=== PATIENT | female | born 1975 | race Caucasian/White ===

== ENCOUNTER 2020-02-16 21:46 | Emergency (ER) | payer OTHER ==
[2020-02-17] MEDS ORDERED: NA CHLORIDE 0.9% 1,000 ML ONE (02:35)
[2020-02-17] MEDS ORDERED: KETOROLAC 30 MG/ML INJ ONE (02:35)
[2020-02-17 02:53] LABS: Absolute Lymphocytes (CBC) 2.6 K/uL (0.7-4.9); Basophils % 0.9 % (0-1.3); Hematocrit 41.7 % (36.0-45.0); Lymphocytes % 15.2 % (15.3-44.8); MPV 8.9 fL (7.6-11.3); RBC Red Blood Cell Count 4.84 M/uL (3.86-4.86)
[2020-02-17 03:06] LABS: Potassium 4.2 mmol/L (3.5-5.1)
[2020-02-17 03:27] LABS: Urine Blood 2+ (NEG); Urine Glucose NEGATIVE (NEG); Urine Protein 2+ (NEG); Urine Specific Gravity 1.015 (1.005-1.030); Urine pH 6.5 (5.0-7.0)
[2020-02-17 03:48] LABS: Urine Culture Reflex Order REFLEXED; Urine Yeast MANY (NONE SEEN); Urine Yeast with Hyphae PRESENT
[2020-02-17 03:49] LABS: Urine Bacteria 20-50 /HPF (<20)
[2020-02-17 03:50] LABS: Urine Specific Gravity 1.015 (1.005-1.030)
[2020-02-17] MEDS ORDERED: CIPROFLOXACIN 400mg IV 400 MG/200 ML BAG IV ONE (04:58)
--- NOTE | 2020-02-17 05:11 | ER ---
Nurse's Notes [facility] Name: Ana Trotter Age: 44 yrs Sex: Female : 1975 Arrival Date: 02/16/2020 Time: 21:48 Bed 14 Private MD: Diagnosis: Right distal ureteric calculus with moderate to severe hydronephrosis and hydroureter. Large right UPJ calculus. Urinary tract infection Presentation: 02/15 21:56 Chief complaint: Patient states: Right flank pain for 1 day. States she just had a ll1 kidney stone removal with stent placement 2 weeks ago. Coronavirus screen: Proceed with normal triage. Patient denies a cough. Patient denies shortness of breath or difficulty breathing. Patient denies measured and/or subjective temperature greater than 100.4F prior to today's visit. Patient denies travel on a cruise ship or to a country the [facility] currently lists as an affected area. Patient denies contact with known and/or suspected case of COVID-19. Ebola Screen: Patient denies travel to an Ebola-affected area in the 21 days before illness onset. Initial Sepsis Screen: Does the patient meet any 2 criteria? HR > 90 bpm. No. Patient's initial sepsis screen is negative. Risk Assessment: Do you want to hurt yourself or someone else? Patient reports no desire to harm self or others. Onset of symptoms was February 16, 2020. 21:56 Method Of Arrival: Ambulatory ll1 21:56 Acuity: CINTIA 3 ll1 02/16 02:23 Initial Sepsis Screen: Does the patient have a suspected source of infection? No. mg2 Patient's initial sepsis screen is negative. 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 - Social history:: Smoking status: Patient reports the use of cigarette tobacco products, smokes one pack cigarettes per day. Patient/guardian denies using alcohol, street drugs. Screenin/02 02:23 Abuse screen: Denies threats or abuse. Denies injuries from another. Nutritional mg2 screening: No deficits noted. Tuberculosis screening: No symptoms or risk factors identified. Fall Risk None identified. Assessment: 02:22 General: Appears in no apparent distress. uncomfortable, Behavior is calm, cooperative. mg2 Pain: Complains of pain in right side. Neuro: Level of Consciousness is awake, alert, obeys commands, Oriented to person, place, time, situation. Cardiovascular: Capillary refill < 3 seconds Patient's skin is warm and dry. Respiratory: Airway is patent Respiratory effort is even, unlabored, Respiratory pattern is regular, symmetrical. GI: No signs and/or symptoms were reported involving the gastrointestinal system. : Reports pain in right flank(s). EENT: No signs and/or symptoms were reported regarding the EENT system. Derm: Skin is intact, is healthy with good turgor, Skin is pink, warm \T\ dry. normal. Musculoskeletal: Circulation, motion, and sensation intact. Capillary refill < 3 seconds. 03:30 Reassessment: Patient appears in no apparent distress at this time. Patient and/or mg2 family updated on plan of care and expected duration. Pain level reassessed. Patient is alert, oriented x 3, equal unlabored respirations, skin warm/dry/pink. 04:35 Reassessment: Patient appears in no apparent distress at this time. Patient and/or mg2 family updated on plan of care and expected duration. Pain level reassessed. Patient is alert, oriented x 3, equal unlabored respirations, skin warm/dry/pink. Vital Signs: 02/15 21:56 BP 143 / 105; Pulse 100; Resp 18; Temp 98.0; Pulse Ox 98% ; Pain 6/10; ll1 02/16 04:41 BP 133 / 76; Pulse 90; Resp 18; Temp 98; Pulse Ox 100% on R/A; mg2 ED Course: 02/15 21:48 Patient arrived in ED. cl3 21:57 Triage completed. ll1 21:59 Arm band placed on Patient notified of wait time. ll1 02/16 00:49 Patient's name was called from ER lobby. No response. lp1 02:14 Juan De La Torre MD is Attending Physician. pkl 02:22 Roc Perales, SWATI is Primary Nurse. mg2 02:23 Patient has correct armband on for positive identification. Pulse ox on. NIBP on. Door mg2 closed. Warm blanket given. 02:39 No provider procedures requiring assistance completed. Inserted saline lock: 20 gauge mg2 in left upper arm, using aseptic technique. Blood collected. 02:53 Urine Microscopic Only Sent. ds4 02:54 Chem 7 Sent. ds4 02:54 CBC with Diff Sent. ds4 02:54 Urine Microscopic Only Sent. ds4 02:55 Urine Dipstick--Ancillary (enter results) Sent. ds4 04:10 CT Stone Protocol In Process Unspecified. EDMS 05:57 IV discontinued, intact, bleeding controlled, No redness/swelling at site. Pressure rv dressing applied. Administered Medications: 02:39 Drug: NS 0.9% 1000 ml Route: IV; Rate: 1000 ml; Site: left upper arm; mg2 03:46 Follow up: Response: No adverse reaction; IV Status: Completed infusion; IV Intake: mg2 1000ml 02:39 Drug: TORadol 30 mg Route: IVP; Site: left upper arm; mg2 03:46 Follow up: Response: No adverse reaction mg2 04:55 Drug: Ciprofloxacin 400 mg Volume: 200 ml; Route: IVPB; Infused Over: 60 mins; Site: mg2 left upper arm; 05:57 Follow up: IV Status: Completed infusion; IV Intake: 200ml rv Intake: 03:46 IV: 1000ml; Total: 1000ml. mg2 05:57 IV: 200ml; Total: 1200ml. rv Outcome: 05:10 Discharge ordered by . pkdarlin 05:19 Discharged to home ambulatory. rv 05:19 Condition: good 05:19 Discharge instructions given to patient, Instructed on discharge instructions, follow up and referral plans. medication usage, Demonstrated understanding of instructions, follow-up care, medications, Prescriptions given X 2. 05:58 Patient left the ED. rv Signatures: Dispatcher [employer] EDMS Juan De La Torre MD MD pkBrandi Sanchez, RN RN lp1 Kevin Cordero ds4 Roc Perales RN RN mg2 Angel Villegas RN RN rv Sara Escoto cl3 Fabiola Escoto RN RN ll1
--- NOTE | 2020-02-17 05:12 | EDPHYS ---
Physician Documentation [facility] Name: Ana Trotter Age: 44 yrs Sex: Female : 1975 Arrival Date: 02/16/2020 Time: 21:48 Bed 14 Private MD: ED Physician Juan De La Torre HPI: 02/16 04:54 This 44 yrs old Female presents to ER via Ambulatory with complaints of Right pkl Side Pain. 04:54 The patient complains of pain in the right flank. The pain radiates to the right lower pkl quadrant. Onset: The symptoms/episode began/occurred today. Patient had stent placement and removal of a right ureteric stone by her urologist ( Dr. Chavira ) in [facility] ) 2 weeks ago. 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 - Social history:: Smoking status: Patient reports the use of cigarette tobacco products, smokes one pack cigarettes per day. Patient/guardian denies using alcohol, street drugs. ROS: 02/16 04:54 Eyes: Negative for injury, pain, redness, and discharge, ENT: Negative for injury, pkl pain, and discharge, Neck: Negative for injury, pain, and swelling, Cardiovascular: Negative for chest pain, palpitations, and edema, Respiratory: Negative for shortness of breath, cough, wheezing, and pleuritic chest pain, Abdomen/GI: Negative for abdominal pain, nausea, vomiting, diarrhea, and constipation, : Negative for injury, bleeding, discharge, and swelling, MS/Extremity: Negative for injury and deformity, Skin: Negative for injury, rash, and discoloration, Neuro: Negative for headache, weakness, numbness, tingling, and seizure. Back: Positive for flank pain, on the right. Exam: 04:54 Head/Face: Normocephalic, atraumatic. Eyes: Pupils equal round and reactive to light, pkl extra-ocular motions intact. Lids and lashes normal. Conjunctiva and sclera are non-icteric and not injected. Cornea within normal limits. Periorbital areas with no swelling, redness, or edema. ENT: Nares patent. No nasal discharge, no septal abnormalities noted. Tympanic membranes are normal and external auditory canals are clear. Oropharynx with no redness, swelling, or masses, exudates, or evidence of obstruction, uvula midline. Mucous membranes moist. Neck: Trachea midline, no thyromegaly or masses palpated, and no cervical lymphadenopathy. Supple, full range of motion without nuchal rigidity, or vertebral point tenderness. No Meningismus. Chest/axilla: Normal chest wall appearance and motion. Nontender with no deformity. No lesions are appreciated. Cardiovascular: Regular rate and rhythm with a normal S1 and S2. No gallops, murmurs, or rubs. Normal PMI, no JVD. No pulse deficits. Respiratory: Lungs have equal breath sounds bilaterally, clear to auscultation and percussion. No rales, rhonchi or wheezes noted. No increased work of breathing, no retractions or nasal flaring. Abdomen/GI: Soft, non-tender, with normal bowel sounds. No distension or tympany. No guarding or rebound. No evidence of tenderness throughout. 04:54 Back: pain, that is moderate, of the right flank. 04:54 Musculoskeletal/extremity: Exam is negative for acute changes. 04:54 Skin: Exam negative for rash. 04:54 Neuro: Orientation: is normal, Mentation: is normal, Cranial nerves: grossly normal, Motor: Vital Signs: 02/15 21:56 BP 143 / 105; Pulse 100; Resp 18; Temp 98.0; Pulse Ox 98% ; Pain 6/10; ll1 02/16 04:41 BP 133 / 76; Pulse 90; Resp 18; Temp 98; Pulse Ox 100% on R/A; mg2 MDM: 02:14 Patient medically screened. pkl 04:54 Data reviewed: vital signs, nurses notes, lab test result(s), radiologic studies, CT pkl scan. ED course: Patient feeling better. Right flank pain improved. Discussed lab. and CT Scan results patient. Patient would like to follow up with her urologist ( Dr. Hughes ) today. Lab. and CT Scan results and disc given to patient. 02/16 02:24 Order name: CBC with Diff; Complete Time: 03:44 pkl 02/16 02:24 Order name: Chem 7; Complete Time: 03:44 pkl 02/16 02:53 Order name: Urine Microscopic Only; Complete Time: 04:37 ds4 02/16 02:53 Order name: Urine Dipstick--Ancillary (enter results); Complete Time: 03:44 ds4 02/16 03:40 Order name: Urine --Ancillary (enter results); Complete Time: 04:37 mt 02/16 03:45 Order name: Urine Culture mt 02/16 02:24 Order name: CT Stone Protocol pkl Administered Medications: 02:39 Drug: NS 0.9% 1000 ml Route: IV; Rate: 1000 ml; Site: left upper arm; mg2 03:46 Follow up: Response: No adverse reaction; IV Status: Completed infusion; IV Intake: mg2 1000ml 02:39 Drug: TORadol 30 mg Route: IVP; Site: left upper arm; mg2 03:46 Follow up: Response: No adverse reaction mg2 04:55 Drug: Ciprofloxacin 400 mg Volume: 200 ml; Route: IVPB; Infused Over: 60 mins; Site: [facility] left upper arm; 05:57 Follow up: IV Status: Completed infusion; IV Intake: 200ml rv Disposition: 02/17/20 05:10 Discharged to Home. Impression: Right distal ureteric calculus with moderate to severe hydronephrosis and hydroureter. Large right UPJ calculus. Urinary tract infection. - Condition is Stable. - Prescriptions for Cipro 500 mg Oral Tablet - take 1 tablet by ORAL route every 12 hours for 7 days; 14 tablet. - Medication Reconciliation Form, Thank You Letter, Antibiotic Education, Prescription Opioid Use form. - Follow up: Private Physician; When: 1 - 2 days; Reason: Re-evaluation by your physician. - Problem is new. - Symptoms have improved. Signatures: Dispatcher [employer] EDMS Juan De La Torre MD MD pkl Roc Perales, RN RN mg2 Angel Villegas RN RN rv Fabiola Escoto RN RN ll1 Corrections: (The following items were deleted from the chart) 05:58 05:10 02/17/2020 05:10 Discharged to Home. Impression: Right distal ureteric calculus rv with moderate to severe hydronephrosis and hydroureter. Large right UPJ calculus. Urinary tract infection. Condition is Stable. Forms are Medication Reconciliation Form, Thank You Letter, Antibiotic Education, Prescription Opioid Use. Follow up: Private Physician; When: 1 - 2 days; Reason: Re-evaluation by your physician. Problem is new. Symptoms have improved. pkl
[2020-02-17 06:09] VITALS: BP 133/76; TEMP 98; O2SAT 100
--- NOTE | 2020-02-17 17:46 | RAD REPORT ---
EXAM DESCRIPTION: Stone Protocol CLINICAL HISTORY: The patient is 44 years old and is Female; H/O kidney stone right flank pain TECHNIQUE: Axial computed tomography images of the abdomen and pelvis without intravenous contrast. Sagittal and coronal reformatted images were created and reviewed. This CT exam was performed usi ng one or more of the following dose reduction techniques: automated exposure control, adjustment o f the mA and/or kV according to patient size, and/or use of iterative reconstruction technique. COMPARISON: No relevant prior studies available. FINDINGS: LUNG BASES: Unremarkable. No mass. No consolidation. ABDOMEN: LIVER: Homogeneous without focal mass. GALLBLADDER AND BILE DUCTS: No calcified stones. No ductal dilation. PANCREAS: Unremarkable. No ductal dilation. SPLEEN: Unremarkable. ADRENALS: Unremarkable. No mass. KIDNEYS AND URETERS: A horseshoe kidney is noted. Moderate to severe right hydronephrosis and hyd roureter is present secondary to a 1.1 cm distal right ureteral calculus. Moderate perinephric and periureteral stranding on the right is present. Multiple bilateral intrarenal calcifications are note d. A large calcification is present within the right renal pelvis. STOMACH AND BOWEL: The stomach is minimally distended. The small bowel is decompressed. Stool is noted throughout colon. There is no mucosal thickening or evidence of bowel obstruction. PELVIS: APPENDIX: No findings to suggest acute appendicitis. BLADDER: The bladder is well distended. No stones. REPRODUCTIVE: Unremarkable as visualized. ABDOMEN and PELVIS: INTRAPERITONEAL SPACE: Unremarkable. No free air. No significant fluid collection. BONES/JOINTS: No acute fracture. SOFT TISSUES: The soft tissues are normal. VASCULATURE: Unremarkable. No abdominal aortic aneurysm. LYMPH NODES: Unremarkable. No enlarged lymph nodes. IMPRESSION: 1. A horseshoe kidney is noted. Moderate to severe right hydronephrosis and hydroureter is present s econdary to a 1.1 cm distal right ureteral calculus. 2. Large right UPJ calculus. 3. Bilateral nephrolithiasis. Electronically signed by: Ana Rosa Mckay MD 02/17/2020 4:18 AM CDT Due to temporary technical issues with the PACS/Fluency reporting system, reports are being signed by the in house radiologistwithout review asa courtesy toensure prompt reporting. The interpreting radi ologist is fully responsible for the content of the report.
== END 2020-02-17 05:58 | disposition home or self-care (01) ==
LOC: ER 21:46
DX: N13.6 Pyonephrosis (principal); F17.210 Nicotine dependence, cigarettes, uncomplicated
CPT/HCPCS: 96365; 96361; 87088; 85025; 87086; 80048; 36415; 81025; 76377; 74176; 96375; 99284; J7030; J0744; 81003; 81015